=== PATIENT | female | born 1995 | race Caucasian/White ===

== ENCOUNTER 2018-05-13 15:21 | Emergency (ER) | payer MEDICAID ==
[~2018-05-13] VITALS: Ht 160 cm; Wt 57.2 kg
[2018-05-13 15:34] VITALS: BP 140/75; PULSE 97; RESP 17; Ht 160 cm; Wt 57.2 kg
[2018-05-13] MEDS ORDERED: KETOROLAC 60 MG INJ IM STA (17:40)
[2018-05-13] MEDS ORDERED: DIAZEPAM 5 MG TAB PO ONE (18:00)
[2018-05-13] MEDS ORDERED: IBUP800T48 PO (18:27)
[2018-05-13] MEDS ORDERED: DIAZ5TAB PO (18:27)
[2018-05-13] MEDS ORDERED: CETI10TA19 PO (18:32)
[2018-05-13] MEDS ORDERED: FLUT16SP17 NASAL (18:32)
--- NOTE | 2018-05-13 18:47 | ERD ---
ER Documentation Chief Complaint Chief Complaint chest wall pain x 3 days associated with difficulty taking deep breath HPI History of Present Illness: Patient coming in today with complaint of chest pain for approximately 3 days. Patient denies respiratory distress, dizziness, shortness of breath, weakness. Patient reports increased stress at work over the past week, and has noticed pain afterwards. Patient also with complaint of nasal congestion; denies cough, runny nose, fever, chills. At home pharmacological/nonpharmacological treatment for symptoms: DENIES Denies social concerns; Denies recent foreign travel ROS All systems reviewed and are negative except as per history of present illness. Medications Home Meds Active Scripts Cetirizine Hcl* (Cetirizine Hcl*) 10 Mg Tablet, 10 MG PO DAILY for NASALCONGESTION/COUGH/ALLERGIE, #30 TAB Prov:VIET HERNANDEZ NP 05/13/18 Fluticasone Propionate* (Fluticasone Propionate* Nasal) 50 Mcg/[place] - 16 Gm [place].susp, 1 SPRAY NASAL DAILY for NASAL CONGESTION, #1 BOTTLE TO EACH NOSTRIL Prov:VIET HERNANDEZ NP 05/13/18 Ibuprofen* (Motrin*) 800 Mg Tab, 800 MG PO Q6H PRN for PAIN AND/OR INFLAMMATION, #30 TAB Prov:VIET HERNANDEZ NP 05/13/18 Diazepam* (Valium*) 5 Mg Tablet, 5 MG PO Q12 PRN for ANXIETY/CHEST WALL PAIN, #15 TAB Prov:VIET HERNANDEZ NP 05/13/18 Allergies Allergies: Coded Allergies: No Known Allergy (Unverified , 08/05/12) PMhx/Soc Medical and Surgical Hx: pt denies Medical Hx, pt denies Surgical Hx Hx Alcohol Use: No Hx Substance Use: No Hx Tobacco Use: No Smoking Status: Never smoker FmHx Family History: coronary disease; No diabetes Physical Exam Vitals Vital Signs Date Temp Pulse Resp B/P (MAP) Pulse Ox O2 O2 Flow FiO2 Time Delivery Rate 05/13/18 98.1 97 17 140/75 100 15:34 (96) Physical Exam Const: No acute distress, afebrile Head: Atraumatic Eyes: Normal Conjunctiva ENT: Normal External Ears, Mouth. Nasal turbinates swollen, nasal mucosa with erythema. Neck: Full range of motion. No meningismus. Resp: Clear to auscultation bilaterally Cardio: Regular rate and rhythm, no murmurs. Heart rate 96. Chest wall tenderness to palpation. Abd: Soft, non tender, non distended. No guarding, no masses, no rigidity Skin: No petechiae or rashes Back: No midline or flank tenderness Ext: No cyanosis, or edema Neur: Awake and alert x3, speaking in clear sentences, no focal deficits or facial asymmetry Psych: Normal Mood and Affect Results 24 hrs Laboratory Tests Test 05/13/18 18:02 POC Beta HCG, Qualitative NEGATIVE Current Medications Medications Dose Sig/Justin Start Time Status Last (Trade) Ordered Route PRN Stop Time Admin Dose Reason Admin Ketorolac 60 mg ONCE STAT 05/13/18 DC 05/13/18 Tromethamine IM 17:40 18:08 (Toradol) 05/13/18 17:44 Diazepam 10 mg ONCE ONCE 05/13/18 DC 05/13/18 (Valium) PO 18:00 18:03 05/13/18 18:01 Procedures/MDM ED course includes a thorough examination and history. Medications: Valium for muscle relaxer/anxiety; ketorolac for pain/inflammation Imaging: ---- Labs: Urine Low suspicion for life-threatening medical emergency. Low suspicion for coronary pulmonary emergency that requires hospitalization/immediate intervention. Patient afebrile, hemodynamically stable. EKG @ 1549: Rate/Rhythm: Normal Tachy Rhythm, VR 112 QRS, ST, T-waves: No changes consistent w/ acute ischemia Impression: No evidence of ischemia or arrhythmia Otherwise healthy patient presenting with constellation of symptoms likely representing uncomplicated chest wall pain/costochondritis secondary to stress at work; allergic rhinitis as characterized by history, physical exam findings. Negative urine No respiratory distress, otherwise relatively well appearing and nontoxic. Patient educated on diagnoses, prescriptions, follow-up care, return precautions. Strict return precautions given for worsening condition; questions answered discharge. Educated on relaxation techniques and emotional support for providing reassurance on decreasing stress related to problems at work. Patient encouraged to take a mental health break; will take 1 day off from work. Disposition for discharge with followup in 2 days with PCP/clinic. Departure Diagnosis: Primary Impression: Anterior chest wall pain Additional Impressions: Stress at home Allergic rhinitis Allergic rhinitis trigger: unspecified Allergic rhinitis seasonality: unspecified Qualified Codes: J30.9 - Allergic rhinitis, unspecified Condition: Stable Patient Instructions: Stress: Causes and Effects, Chest Wall Pain, Costochondritis, Allergic Rhinitis Referrals: [facility] () Usted se guzman hecho un examen mdico de control que le indica que no est en ankur condicin que requiera tratamiento urgente en el Departamento de Emergencia. Un estudio ms profundo y el tratamiento de vences condicin pueden esperar sin ningn riesgo hasta que usted sea atendida/o en el consultorio de vences mdico o ankur clnica. Es responsabilidad suya arreglar ankur melissa para el seguimiento del daniel. MANEJO DE CONDICIONES NO URGENTES EN EL FUTURO 1) Si usted tiene un mdico de atencin primaria: Usted debera llamar a vences mdico de atencin primaria antes de venir al departamento de emergencia. Despus de las horas de consultorio, vences doctor o vences asociado/a est disponible por telfono. El mdico o enfermero de connie en el servicio telefnico puede asesorarle por rhea medio para atender el problema, o daniel contrario se puede programar ankur melissa. 2) Si usted no tiene un mdico de atencin primaria: Llame al mdico o clnica de referencia que aparece abajo brian las horas de consultorio para hacer ankur melissa para que le vean. CLINICAS: [facility] [phone] [facility] [phone] [facility] [phone] [address] [address]. [facility] [phone] [address] [facility] [phone] [address] [facility]. [phone] [address] [facility] [address] . [facility] () Usted se guzman hecho un examen mdico de control que le indica que no est en ankur condicin que requiera tratamiento urgente en el Departamento de Emergencia. Un estudio ms profundo y el tratamiento de vences condicin pueden esperar sin ningn riesgo hasta que usted sea atendida/o en el consultorio de vences mdico o ankur clnica. Es responsabilidad suya arreglar ankur melissa para el seguimiento del daniel. MANEJO DE CONDICIONES NO URGENTES EN EL FUTURO 1) Si usted tiene un mdico de atencin primaria: Usted debera llamar a vences mdico de atencin primaria antes de venir al departamento de emergencia. Despus de las horas de consultorio, vences doctor o vences asociado/a est disponible por telfono. El mdico o enfermero de connie en el servicio telefnico puede asesorarle por rhea medio para atender el problema, o daniel contrario se puede programar ankur melissa. 2) Si usted no tiene un mdico de atencin primaria: Llame al mdico o condado institucions de referencia que aparece abajo brian las horas de consultorio para hacer ankur melissa para que le vean. SI USTED NO PUEDE PAGAR PARA NASH UN MEDICO puede ir a: [facility] [address] [place] [address] [facility] [address] [place] [address] [facility] [address] [place] [address] [facility] [address] [place], [place] [id number] Additional Instructions: Muchas rinku por permitirnos participar en vences cuidado. Vences federico y seguridad es nuestra principal prioridad en [facility]. Llame a vences mdico de atencin primaria MAANA para ankur melissa brian los prximos 2 a 4 parham y traiga toda la informacin y los medicamentos recetados. Llene las recetas y siga exactamente las instrucciones de la etiqueta. Si los sntomas empeoran y vences proveedor no est disponible, regrese inmediatamente al Departamento de Emergencias. Es importante encontrar actividades para aliviar el estrs. Parece ser que actualmente tiene el dolor de la pared torcica debido a la tatianna tensin en el hogar. [place] Valium y contine teniendo dolor en la pared torcica y ansiedad debido al estrs. [place] el ibuprofeno para el dolor / inflamacin. Es seguro kiran ambos medicamentos juntos. Te estoy dando 2 medicamentos para la congestin nasal. La cetirizina es ankur pldora que debe kiran todos los parham para prevenir la congestin nasal por recurrencia. La fluticasona es un aerosol nasal que se puede usar todos los parham. ------ Thank you very much for allowing us to participate in your care. Your health and safety is our top priority at [facility]. Call your primary care doctor TOMORROW for an appointment during the next 2-4 days and bring all the information and medications prescribed. Have prescriptions filled and follow precisely the directions on the label. If the symptoms get worse and your provider is unavailable, return to the Emergency Department immediately. It is important to find stress relief activities. It appears to be that you are currently having the chest wall pain due to high stress at home. Take the Valium and continue to have the chest wall pain and anxiety due to stress. Take the ibuprofen for pain/inflammation. It is safe to take both medications together. I am giving you 2 medications for nasal congestion. Cetirizine is a pill that you should take every day to prevent nasal congestion for recurring. Fluticasone is a nasal spray that you can use every day. VIET HERNANDEZ NP May 13, 2018 18:46
== END 2018-05-13 18:45 | disposition home or self-care (01) ==
LOC: FTE 15:21
DX: R07.89 Other chest pain (principal); J30.9 Allergic rhinitis, unspecified; F43.0 Acute stress reaction
CPT/HCPCS: 81025; 93005; J1885; Z7610; 96372

== ENCOUNTER 2018-06-01 09:40 | Emergency (ER) | payer MEDICAID ==
[~2018-06-01] VITALS: Ht 160 cm; Wt 58.3 kg
[~2018-06-01 09:40] MED LIST: CETI10TA19 PO; DIAZ5TAB PO; FLUT16SP17 NASAL; IBUP800T48 PO
[2018-06-01 09:42] VITALS: Ht 160 cm; Wt 58.3 kg
--- NOTE | 2018-06-01 12:33 | ERD ---
ER Documentation Chief Complaint Chief Complaint vaginal bleeding - LMP 04/20/18 ; denies pain HPI 22-year-old female presents with approximately 6 weeks by dates. She has had vaginal bleeding since last night. She may have had small clots but no tissues. She has minimal pain. She has mild right-sided pelvic pain. She denies fevers, vomiting, urinary complaints. She did see an OB yesterday but bleeding did not start the last night. She is a G2 para 1. ROS All systems reviewed and are negative except as per history of present illness. Medications Home Meds Active Scripts Cetirizine Hcl* (Cetirizine Hcl*) 10 Mg Tablet, 10 MG PO DAILY for NASALCON GESTION/COUGH/ALLERGIE, #30 TAB Prov:VIET HERNANDEZ V CUSTOMER CONTACT REPRESENTATIVE 05/13/18 Fluticasone Propionate* (Fluticasone Propionate* Nasal) 50 Mcg/[place] - 16 Gm [place].susp, 1 SPRAY NASAL DAILY for NASAL CONGESTION, #1 BOTTLE TO EACH NOSTRIL Prov:VIET HERNANDEZ NP 05/13/18 Ibuprofen* (Motrin*) 800 Mg Tab, 800 MG PO Q6H PRN for PAIN AND/OR INFLAMMATION, #30 TAB Prov:VIET HERNANDEZ V CUSTOMER CONTACT REPRESENTATIVE 05/13/18 Diazepam* (Valium*) 5 Mg Tablet, 5 MG PO Q12 PRN for ANXIETY/CHEST WALL PAIN, #15 TAB Prov:VIET HERNANDEZ V CUSTOMER CONTACT REPRESENTATIVE 05/13/18 Allergies Allergies: Coded Allergies: No Known Allergy (Unverified , 08/05/12) PMhx/Soc Medical and Surgical Hx: pt denies Medical Hx, pt denies Surgical Hx Hx Alcohol Use: No Hx Substance Use: No Hx Tobacco Use: No Smoking Status: Never smoker Physical Exam Vitals Vital Signs Date Temp Pulse Resp B/P (MAP) Pulse Ox O2 O2 Flow FiO2 Time Delivery Rate 06/01/18 97.0 116 24 145/65 100 09:42 (91) Physical Exam Const: No acute distress Head: Atraumatic Eyes: Normal Conjunctiva ENT: Normal External Ears, Nose and Mouth. Neck: Full range of motion. No meningismus. Resp: Clear to auscultation bilaterally Cardio: Regular rate and rhythm, no murmurs Abd: Soft, minimal tenderness in right pelvic area without rebound. No masses. Non distended. Normal bowel sounds Skin: No petechiae or rashes Back: No midline or flank tenderness Ext: No cyanosis, or edema Neur: Awake and alert Psych: Normal Mood and Affect Result Diagram: 06/01/18 1020 Results 24 hrs Laboratory Tests Test 06/01/18 10:20 White Blood Count 8.0 10^3/ul Red Blood Count 4.69 10^6/ul Hemoglobin 13.5 g/dl Hematocrit 41.1 % Mean Corpuscular Volume 87.6 fl Mean Corpuscular Hemoglobin 28.8 pg Mean Corpuscular Hemoglobin Concent 32.8 g/dl Red Cell Distribution Width 13.0 % Platelet Count 299 10^3/UL Mean Platelet Volume 9.7 fl Immature Granulocytes % 0.500 % Neutrophils % 66.4 % Lymphocytes % 21.6 % Monocytes % 7.4 % Eosinophils % 3.3 % Basophils % 0.8 % Nucleated Red Blood Cells % 0.0 /100WBC Immature Granulocytes # 0.040 10^3/ul Neutrophils # 5.3 10^3/ul Lymphocytes # 1.7 10^3/ul Monocytes # 0.6 10^3/ul Eosinophils # 0.3 10^3/ul Basophils # 0.1 10^3/ul Nucleated Red Blood Cells # 0.0 10^3/ul Urine Color STRAW Urine Clarity CLEAR Urine pH 7.0 Urine Specific [place] 1.004 Urine Ketones NEGATIVE mg/dL Urine Nitrite NEGATIVE mg/dL Urine Bilirubin NEGATIVE mg/dL Urine Urobilinogen NEGATIVE mg/dL Urine Leukocyte Esterase NEGATIVE Nir/ul Urine Hemoglobin NEGATIVE mg/dL Urine Glucose NEGATIVE mg/dL Urine Total Protein NEGATIVE mg/dl POC Beta HCG, Qualitative POSITIVE Beta HCG, Quantitative 670.8 mIU/ml Procedures/MDM Pelvic ultrasound shows no appreciable intrauterine or extrauterine . There is a 1.4 cm right paraovarian cyst. There is bilateral Doppler flow. Quantitative hCG is 670. Patient is Rh+. Stable amatory throughout the ER course. Patient presents with vaginal bleeding for the last day. Differential includes early normal , ectopic , failed . She will discharged home with recommendations for 2-day recheck of hormones to further evaluate condition. She is to return sooner for fevers, hemorrhaging, new worsening symptoms. Current signs or symptoms do not suggest appendicitis, acute surgical abdomen, additional concerning signs or symptoms or conditions. The patient was stable with no new complaints during the ER course. Clinically, there is no current evidence to suggest meningitis, sepsis, acute abdomen, pneumonia, stroke, acute coronary syndrome, pulmonary embolism, aortic dissection or any other emergent condition appearing to require further evaluation or hospitalization. Patient counseled regarding my diagnostic impression and care plan. Prior to discharge all questions answered. Pt agrees with treatment plan and understands strict return precautions. Pt is instructed to follow up with primary care provider within 24- 48 hours. Precautionary instructions provided including instructions to return to the ER if not improving or for any worsening or changing symptoms or concerns. Departure Diagnosis: Primary Impression: Vaginal bleeding in patient at less than 20 weeks ges... Condition: Stable Patient Instructions: Bleeding During Early Referrals: NO PRIMARY,CARE PHYSICIAN (PCP) Additional Instructions: no uede maria teresa un emabarazo horita. posiblemente emabarazo temprano, ectopico o aborto. cheque hormaones otor vez en 2 michelle para cheque otor vez, mas temprano para fiebre , nueva simptomas. ROSALIO POWELL MD Jun 01, 2018 12:33
[2018-06-01 12:45] VITALS: BP 135/70; PULSE 89; RESP 18
== END 2018-06-01 12:47 | disposition home or self-care (01) ==
LOC: FTE 09:40
DX: O20.9 Hemorrhage in early pregnancy, unspecified (principal); R10.2 Pelvic and perineal pain; Z3A.01 Less than 8 weeks gestation of pregnancy
CPT/HCPCS: 36415; 76801; 76817; 81003; 81025; 84702; 85025; 86900; 86901; Z7502

== ENCOUNTER 2018-06-03 11:42 | Inpatient (IN) | payer MEDICAID ==
[~2018-06-03] VITALS: Ht 160 cm; Wt 60.3 kg
--- NOTE | 2018-06-03 12:37 | ERD ---
ER Documentation Chief Complaint Chief Complaint VAG BLEED 6 WEEKS PREG HPI This is a 22-year-old female who presents to the emergency room for recheck of vaginal bleeding. Patient was here 2 days ago and beta hCG was 670 with no IUP visualized on ultrasound. Patient states in the last 2 days she continues to have dark brown spotting blood with urination, no active bleeding, patient's not wearing a pad. No fevers, no dysuria, mild cramping pain. LMP: 04/20/18 PETRONA: 01/25/19 OB: [facility], Julius Valium and ibuprofen on patient's med list. Patient states she is not taking them and knows that this is contraindicated in . ROS All systems reviewed and are negative except as per history of present illness. Medications Home Meds Active Scripts Cetirizine Hcl* (Cetirizine Hcl*) 10 Mg Tablet, 10 MG PO DAILY for NASALCONGESTION/COUGH/ALLERGIE, #30 TAB Prov:VIET HERNANDEZ NP 05/13/18 Fluticasone Propionate* (Fluticasone Propionate* Nasal) 50 Mcg/[place] - 16 Gm [place].susp, 1 SPRAY NASAL DAILY for NASAL CONGESTION, #1 BOTTLE TO EACH NOSTRIL Prov:VIET HERNANDEZ NP 05/13/18 Ibuprofen* (Motrin*) 800 Mg Tab, 800 MG PO Q6H PRN for PAIN AND/OR INFLAMMATION, #30 TAB Prov:VIET HERNANDEZ NP 05/13/18 Diazepam* (Valium*) 5 Mg Tablet, 5 MG PO Q12 PRN for ANXIETY/CHEST WALL PAIN, #15 TAB Prov:VIET HERNANDEZ NP 05/13/18 Allergies Allergies: Coded Allergies: No Known Allergy (Unverified , 08/05/12) PMhx/Soc Medical and Surgical Hx: pt denies Medical Hx, pt denies Surgical Hx Hx Alcohol Use: No Hx Substance Use: No Hx Tobacco Use: No FmHx Family History: No diabetes, No coronary disease, No other Physical Exam Vitals Vital Signs Date Temp Pulse Resp B/P (MAP) Pulse Ox O2 O2 Flow FiO2 Time Delivery Rate 06/03/18 99.6 122 16 139/86 98 Room Air 15:31 (103) 06/03/18 99.9 136 18 149/87 99 11:45 (107) Physical Exam Const: No acute distress Head: Atraumatic Eyes: Normal Conjunctiva, PERRL ENT: Normal External Ears, Nose and Mouth. Neck: Full range of motion. No meningismus. Resp: Clear to auscultation bilaterally Cardio: Regular rate and rhythm, no murmurs Abd: Soft, +tender, LLQ, non distended. Normal bowel sounds Skin: No petechiae or rashes Ext: No cyanosis, or edema Neur: Awake and alert Psych: Normal Mood and Affect Result Diagram: 06/03/18 1249 Results 24 hrs Laboratory Tests Test 06/03/18 12:35 06/03/18 12:49 Urine Color YELLOW Urine Clarity SLIGHTLY CLOUDY Urine pH 7.0 Urine Specific [place] 1.006 Urine Ketones NEGATIVE mg/dL Urine Nitrite NEGATIVE mg/dL Urine Bilirubin NEGATIVE mg/dL Urine Urobilinogen NEGATIVE mg/dL Urine Leukocyte Esterase NEGATIVE Nir/ul Urine Microscopic RBC 2 /HPF Urine Microscopic WBC 1 /HPF Urine Squamous Epithelial Cells FEW /HPF Urine Hemoglobin 1+ mg/dL Urine Glucose NEGATIVE mg/dL Urine Total Protein NEGATIVE mg/dl White Blood Count 10.9 10^3/ul Red Blood Count 4.42 10^6/ul Hemoglobin 12.8 g/dl Hematocrit 38.5 % Mean Corpuscular Volume 87.1 fl Mean Corpuscular Hemoglobin 29.0 pg Mean Corpuscular Hemoglobin Concent 33.2 g/dl Red Cell Distribution Width 12.9 % Platelet Count 288 10^3/UL Mean Platelet Volume 9.9 fl Immature Granulocytes % 0.500 % Neutrophils % 71.7 % Lymphocytes % 17.4 % Monocytes % 7.9 % Eosinophils % 1.8 % Basophils % 0.7 % Nucleated Red Blood Cells % 0.0 /100WBC Immature Granulocytes # 0.050 10^3/ul Neutrophils # 7.8 10^3/ul Lymphocytes # 1.9 10^3/ul Monocytes # 0.9 10^3/ul Eosinophils # 0.2 10^3/ul Basophils # 0.1 10^3/ul Nucleated Red Blood Cells # 0.0 10^3/ul Beta HCG, Quantitative 1580.2 mIU/ml Current Medications Medications Dose Sig/Justin Start Time Status Last (Trade) Ordered Route PRN Stop Time Admin Dose Reason Admin Ondansetron 4 mg BRIDGE ORDER 4/19/19 HCl (Zofran PRN IV 15:00 Inj) NAUSEA/VOMITI 06/04/18 14:59 NG 650 mg ER BRIDGE 06/03/18 Acetaminophen PRN PO 15:00 (Tylenol .MILD PAIN 06/04/18 14:59 Tab) 1-3 OR TEMP Sodium 1,000 ml @ Q1H STAT 06/03/18 06/03/18 Chloride 1,000 mls/hr IV 15:34 15:40 06/03/18 16:33 Procedures/MDM This is a 22-year-old female who presents to the emergency room with follow-up to vaginal bleeding during . ED COURSE: The patient was stable throughout ED course. I kept the patient and/or family informed of laboratory and diagnostic imaging results throughout the ED course. DIAGNOSTIC IMAGING: US: No intrauterine gestation visualized. Read by radiologist. MEDICATIONS GIVEN: None. MDM: 06/01/18: Rh+; H/H-13.5/41.1; BHCG- 670.8; US- of unknown location. Negative for evidence of an intrauterine and negative for evidence of an adnexal mass. 06/03/18: H/H-12.8/38.5 ;BHCG- 1580; US- No intrauterine gestation visualized 13:56-been ultrasound exam assessed with concern for ectopic . Dr. Rubalcava consulted. Dr. Maldonado senior qa automation engineer to come see patient. Patient informed of results and plan, patient remained stable, no active bleeding, no pain, NAD. Patient moved to private exam room for preparation of pelvic exam. 15:09: She remained stable during ED course. Patient is being admitted to hospitalist OB Dr. Maldonado who is assuming care of patient. 15:38: IV and NS initiated due to pt HR. Patient is tearful. No active bleeding. Awaiting transfer to inpatient room. Departure Patient Instructions: Miscarriage Referrals: [facility], JAMIE Garcia NP Jun 03, 2018 12:37
[2018-06-03] MEDS ORDERED: ONDANSETRON 4 MG INJ IV PRN (15:00)
[2018-06-03] MEDS ORDERED: ACETAMINOPHEN 325 MG TAB PO PRN (15:00)
--- NOTE | 2018-06-03 15:33 | QN ---
Documentation Comment Medical decision making: Patient has a likely ectopic with increasing quantitative hCG but no IUP seen on ultrasound. I spoke with Dr. Maldonado for admission to her service to a medical surgical bed. KATHY WEST MD Jun 03, 2018 15:33
[2018-06-03] MEDS ORDERED: SOD CHLORIDE 0.9% 1,000 ML IV STA (15:34)
--- NOTE | 2018-06-03 18:30 | CONS ---
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 U/s today no GS or adnesal mass noted compare to 06/01/18when us showed no intrauterine sac nor adnexal mass with 1.4cm paraovarian cyst noted endometrial thickness is increased today u/s compare to 06/01/18, but no paratubal cyst since HCG doubled up in 2days and patient desire to keep the if its normal,will repeat HCG in am with hospital observation closely since patient is tarchycardic, which was also on 06/01/18 ( HR 117) admit to med surg repeat HCG and U/s LLQ pain mild browinsh spotting 2days ago Constitutional: no complaints, improved Past Medical History Medical History: no pertinent history Home Meds Active Scripts Cetirizine Hcl* (Cetirizine Hcl*) 10 Mg Tablet, 10 MG PO DAILY for NASALCONGESTION/COUGH/[place], #30 TAB Prov:VIET HERNANDEZ NP 05/13/18 Fluticasone Propionate* (Fluticasone Propionate* Nasal) 50 Mcg/[place] - 16 Gm [place].susp, 1 SPRAY NASAL DAILY for NASAL CONGESTION, #1 BOTTLE TO EACH NOSTRIL Prov:VIET HERNANDEZ NP 05/13/18 Ibuprofen* (Motrin*) 800 Mg Tab, 800 MG PO Q6H PRN for PAIN AND/OR INFLAMMATION, #30 TAB Prov:VIET HERNANDEZ NP 05/13/18 Diazepam* (Valium*) 5 Mg Tablet, 5 MG PO Q12 PRN for ANXIETY/CHEST WALL PAIN, #15 TAB Prov:VIET HERNANDEZ NP 05/13/18 Medications Current Medications Ondansetron HCl (Zofran Inj) 4 mg BRIDGE ORDER PRN IV NAUSEA/VOMITING; Start 06/03/18 at 15:00; Stop 06/04/18 at 14:59 Acetaminophen (Tylenol Tab) 650 mg ER BRIDGE PRN PO .MILD PAIN 1-3 OR TEMP; Start 06/03/18 at 15:00; Stop 06/04/18 at 14:59 Allergies: Coded Allergies: No Known Allergy (Unverified , 08/05/12) Past Surgical History section for distress Past Surgical Hx: no surgical history Family History Significant Family History: no pertinent family hx Social History Alcohol Use: none Smoking Status: Current every day smoker Drug Use: none Exam/Review of Systems Exam Vitals Vital Signs Date Temp Pulse Resp B/P (MAP) Pulse Ox O2 O2 Flow FiO2 Time Delivery Rate 06/03/18 117 20 133/76 100 Room Air 16:36 (95) 06/03/18 99.6 15:31 Constitutional: alert, oriented, well developed Psych: no complaints, nl mood/affect Head: No normocephalic, No atraumatic, No lacerations, No hematomas, No other Eyes: nl conjunctiva, EOMI, nl lids, nl sclera, PERRL Genitourinary - Female: nl adnexae, nl external genitalia, CMT, CVA tenderness, uterus, other (mild tenderness) Results Result Diagram: 06/03/18 1249 Results 24hrs Laboratory Tests Test 06/03/18 12:35 06/03/18 12:49 Urine Color YELLOW Urine Clarity SLIGHTLY CLOUDY A Urine pH 7.0 Urine Specific [place] 1.006 Urine Ketones NEGATIVE Urine Nitrite NEGATIVE Urine Bilirubin NEGATIVE Urine Urobilinogen NEGATIVE Urine Leukocyte Esterase NEGATIVE Urine Microscopic RBC 2 Urine Microscopic WBC 1 Urine Squamous Epithelial Cells FEW Urine Hemoglobin 1+ H Urine Glucose NEGATIVE Urine Total Protein NEGATIVE White Blood Count 10.9 #H Red Blood Count 4.42 Hemoglobin 12.8 Hematocrit 38.5 Mean Corpuscular Volume 87.1 Mean Corpuscular Hemoglobin 29.0 Mean Corpuscular Hemoglobin Concent 33.2 Red Cell Distribution Width 12.9 Platelet Count 288 Mean Platelet Volume 9.9 Immature Granulocytes % 0.500 H Neutrophils % 71.7 Lymphocytes % 17.4 Monocytes % 7.9 Eosinophils % 1.8 Basophils % 0.7 Nucleated Red Blood Cells % 0.0 Immature Granulocytes # 0.050 H Neutrophils # 7.8 H Lymphocytes # 1.9 Monocytes # 0.9 Eosinophils # 0.2 Basophils # 0.1 Nucleated Red Blood Cells # 0.0 Beta HCG, Quantitative 1580.2 Medications Medication Current Medications Ondansetron HCl (Zofran Inj) 4 mg BRIDGE ORDER PRN IV NAUSEA/VOMITING; Start 06/03/18 at 15:00; Stop 06/04/18 at 14:59 Acetaminophen (Tylenol Tab) 650 mg ER BRIDGE PRN PO .MILD PAIN 1-3 OR TEMP; Start 06/03/18 at 15:00; Stop 06/04/18 at 14:59 HUGH BALTAZAR MD Jun 03, 2018 18:25
[2018-06-03 19:43] VITALS: BP 120/71; PULSE 120; RESP 17
[2018-06-03 19:51] VITALS: Ht 160 cm; Wt 60.3 kg
[2018-06-03 20:18] VITALS: PULSE 118
[2018-06-03 23:45] VITALS: BP 123/66; PULSE 107; RESP 18
[2018-06-04] VITALS (12 sets, daily range): BP systolic 106–121; BP diastolic 58–69; PULSE 86–109; RESP 17–18
--- NOTE | 2018-06-04 17:01 | QN ---
Documentation Comment Patient denies any abdominal pain. Reports had some scant amount of bleeding when she urinated this morning.Denies any N/V. Denies any dizziness, lightheadedness, shortness of breath or chest pain Examination: General appearance: Alert and oriented x4 comfortable in the bed, does not appear to be in any acute distress Abdomen: Soft, no tenderness, no rebound tenderness, no guarding, no rigidity, no evidence of acute abdomen Pelvic exam deferred Laboratory Tests Test 06/03/18 12:35 06/03/18 12:49 06/04/18 05:40 Urine Color YELLOW Urine Clarity SLIGHTLY CLOUDY Urine pH 7.0 Urine Specific [place] 1.006 Urine Ketones NEGATIVE mg/dL Urine Nitrite NEGATIVE mg/dL Urine Bilirubin NEGATIVE mg/dL Urine Urobilinogen NEGATIVE mg/dL Urine Leukocyte Esterase NEGATIVE Nir/ul Urine Microscopic RBC 2 /HPF Urine Microscopic WBC 1 /HPF Urine Squamous Epithelial Cells FEW /HPF Urine Hemoglobin 1+ mg/dL Urine Glucose NEGATIVE mg/dL Urine Total Protein NEGATIVE mg/dl White Blood Count 10.9 10^3/ul 9.7 10^3/ul Red Blood Count 4.42 10^6/ul 4.21 10^6/ul Hemoglobin 12.8 g/dl 12.2 g/dl Hematocrit 38.5 % 37.0 % Mean Corpuscular Volume 87.1 fl 87.9 fl Mean Corpuscular Hemoglobin 29.0 pg 29.0 pg Mean Corpuscular 33.2 g/dl 33.0 g/dl Hemoglobin Concent Red Cell Distribution Width 12.9 % 13.0 % Platelet Count 288 10^3/UL 284 10^3/UL Mean Platelet Volume 9.9 fl 10.1 fl Immature Granulocytes % 0.500 % 0.400 % Neutrophils % 71.7 % 56.8 % Lymphocytes % 17.4 % 30.4 % Monocytes % 7.9 % 8.4 % Eosinophils % 1.8 % 3.2 % Basophils % 0.7 % 0.8 % Nucleated Red Blood Cells % 0.0 /100WBC 0.0 /100WBC Immature Granulocytes # 0.050 10^3/ul 0.040 10^3/ul Neutrophils # 7.8 10^3/ul 5.5 10^3/ul Lymphocytes # 1.9 10^3/ul 3.0 10^3/ul Monocytes # 0.9 10^3/ul 0.8 10^3/ul Eosinophils # 0.2 10^3/ul 0.3 10^3/ul Basophils # 0.1 10^3/ul 0.1 10^3/ul Nucleated Red Blood Cells # 0.0 10^3/ul 0.0 10^3/ul Beta HCG, Quantitative 1580.2 mIU/ml 1990.6 mIU/ml PROCEDURE: US OB. CLINICAL INDICATION: Vaginal bleeding in . TECHNIQUE: Transabdominal and endovaginal imaging of the uterus is available for review COMPARISON: US PELVIS 06/03/2018 FINDINGS: There is a single intrauterine with a mean sac diameter of 0.6 cm, giving an estimated gestational age of 5 weeks 1 day by ultrasound criteria. No pole or yolk sac is detected. No subchorionic hemorrhage is identified. The ovaries demonstrate a 2.1 cm right ovarian corpus luteum cyst. There is a 1.5 cm right paraovarian cyst with 3 mm echogenicity along the wall. IMPRESSION: 1. Single intrauterine with an estimated gestational age of 5 weeks 1 day by ultrasound criteria. No pole or yolk sac is identified. This may be secondary to early dates. Repeat pelvic ultrasound is recommended in 1 week. 2. 1.5 cm right paraovarian cyst with 3 mm echogenic focus along the wall. Assessment: Amenorrhea test positive, admitted for rule out ectopic Hemodynamically stable. Asymptomatic HCG rising, however ultrasound showed gestational sac without yolk sac or pole Recommended the patient have a repeat hCG in 48 hours after initial hCG lab to see the trend, still cannot rule out ectopic since yolk sac was not seen Discussed with the patient plan of care Order for hCG tomorrow at noon at the same time of initial draw was placed Desired Scant spotting, threatened miscarriage Type and screen requested If serum hCG shows adequate increase in 48 hours, 50% or more from the original lab in the hospital and in the same lab, may consider discharge home with a strict precaution and follow-up within 2-3 days after discharge from 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 Patient verbalized understanding. ASHELY BOBO MD Jun 04, 2018 17:01
[2018-06-05] VITALS (12 sets, daily range): BP systolic 101–121; BP diastolic 56–99; PULSE 75–129; RESP 17–20
--- NOTE | 2018-06-05 16:47 | QN ---
Documentation Comment Early patient is comfortable No Vb No abd pain VS stable Gen AND Abd soft ND NT Genitalia No blood at perineum --->Discharge plan if ultraound doesn't show any clear Ectopic precautions discussed [facility] answered Follow up as outpatient LANDON MURCIA M.D. Jun 05, 2018 16:47
--- NOTE | 2018-06-05 16:47 | DS ---
Date/Time of Note Date/Time of Note DATE: 06/05/18 TIME: 16:47 Discharge Summary Admission/Discharge Info Admit Date/Time Jun 03, 2018 at 14:41 Discharge Date/Time 06/05/18 Discharge Diagnosis early Patient Condition: Good Hospital Course uneventful Home Meds Active Scripts Cetirizine Hcl* (Cetirizine Hcl*) 10 Mg Tablet, 10 MG PO DAILY for NASALCONGESTION/COUGH/[place], #30 TAB Prov:VIET HERNANDEZ NP 05/13/18 Fluticasone Propionate* (Fluticasone Propionate* Nasal) 50 Mcg/[place] - 16 Gm [place].susp, 1 SPRAY NASAL DAILY for NASAL CONGESTION, #1 BOTTLE TO EACH NOSTRIL Prov:VIET HERNANDZE NP 05/13/18 Ibuprofen* (Motrin*) 800 Mg Tab, 800 MG PO Q6H PRN for PAIN AND/OR INFLAMMATION, #30 TAB Prov:VIET HERNANDEZ NP 05/13/18 Diazepam* (Valium*) 5 Mg Tablet, 5 MG PO Q12 PRN for ANXIETY/CHEST WALL PAIN, #15 TAB Prov:VIET HERNANDEZ NP 05/13/18 Primary Care Provider Not On Staff Doctor Pending Labs Laboratory Tests Test 06/05/18 14:42 Beta HCG, Quantitative 4107.9 mIU/ml LANDON MURCIA M.D. Jun 05, 2018 16:47
--- NOTE | 2018-06-05 20:39 | QN ---
Documentation Comment still tachycardic pelvic pain is not significant u/s definitely sac is visible but paraovarian cyst ? /ectopic A early IUP P repeat B HCG TSH for tacycardia one more U/S in am HUGH BALTAZAR MD Jun 05, 2018 20:39
[2018-06-06] VITALS (11 sets, daily range): BP systolic 101–114; BP diastolic 52–61; PULSE 62–118; RESP 18–20
[2018-06-06] MEDS: SOD CHLORIDE 0.9% 1,000 ML IV SCH (14:46)
--- NOTE | 2018-06-06 17:58 | QN ---
Documentation Comment Early patient is comfortable No Vb No abd pain VS stable Mildly tachycardic Gen AND Abd soft ND NT Genitalia No blood at perineum --->Discharge plan if ultraound doesn't show any clear Ectopic tomorrow precautions discussed Questions answered Follow up as outpatient LANDON MURCIA M.D. Jun 06, 2018 17:58
[2018-06-07] VITALS (10 sets, daily range): BP systolic 100–115; BP diastolic 53–59; PULSE 73–119; RESP 16–18
[2018-06-07] MEDS: SOD CHLORIDE 0.9% 1,000 ML IV SCH ×2 (00:30→09:51)
--- NOTE | 2018-06-07 17:11 | QN ---
Documentation Comment Early vs Missed Patient is comfortable No Vb No abd pain VS stable Gen AND Abd soft ND NT Genitalia No blood at perineum --->discharged with precautions and will follow up as outpatient. --->questions answered --->follow up with provider LANDON MURCIA M.D. Jun 07, 2018 17:11
--- NOTE | 2018-06-07 17:12 | DS ---
Date/Time of Note Date/Time of Note DATE: 06/07/18 TIME: 17:11 Discharge Summary Admission/Discharge Info Admit Date/Time Jun 03, 2018 at 14:41 Discharge Date/Time 06/07/2018 Discharge Diagnosis early vs Missed Patient Condition: Good Hospital Course uneventful Home Meds Active Scripts Cetirizine Hcl* (Cetirizine Hcl*) 10 Mg Tablet, 10 MG PO DAILY for NASALCONGESTION/COUGH/[place], #30 TAB Prov:VIET HERNANDEZ NP 05/13/18 Fluticasone Propionate* (Fluticasone Propionate* Nasal) 50 Mcg/[place] - 16 Gm [place].susp, 1 SPRAY NASAL DAILY for NASAL CONGESTION, #1 BOTTLE TO EACH NOSTRIL Prov:VIET HERNANDEZ NP 05/13/18 Ibuprofen* (Motrin*) 800 Mg Tab, 800 MG PO Q6H PRN for PAIN AND/OR INFLAMMATION, #30 TAB Prov:VIET HERNANDEZ V DOUGHNUT MAKER 05/13/18 Diazepam* (Valium*) 5 Mg Tablet, 5 MG PO Q12 PRN for ANXIETY/CHEST WALL PAIN, #15 TAB Prov:VIET HERNANDEZ V DOUGHNUT MAKER 05/13/18 Primary Care Provider Not On Staff Doctor Pending Labs Laboratory Tests Test 06/07/18 10:28 06/07/18 10:38 Beta HCG, Quantitative 8555.4 mIU/ml Serum HCG, Qualitative POSITIVE (NEGATIVE) LANDON MURCIA M.D. Jun 07, 2018 17:12
== END 2018-06-07 18:12 | disposition home or self-care (01) | DRG 833 ==
LOC: FTE 11:42 → 6WM 14:41 → CANRESERV 15:18 → EDBEDREQSVC 16:04
PROVIDERS: ADMIT Obstetrics & Gynecology; ATTEND Obstetrics & Gynecology
DX: O20.9 Hemorrhage in early pregnancy, unspecified (principal); Z3A.01 Less than 8 weeks gestation of pregnancy
CPT/HCPCS: 36415; 76801; 76817; 81001; 84443; 84702; 84703; 85025; 86850; 86900; 86901; J7030

== ENCOUNTER 2018-08-20 08:12 | Emergency (ER) | payer MEDICAID ==
[~2018-08-20] VITALS: Ht 160 cm; Wt 60.5 kg
[2018-08-20 08:22] VITALS: BP 123/65; PULSE 109; RESP 18; Ht 160 cm; Wt 60.5 kg
--- NOTE | 2018-08-20 09:17 | ERD ---
ER Documentation Chief Complaint Chief Complaint VAG. SPOTTING SINCE THIS MORNING. 17 WKS . HPI 23-year-old female presents the emergency department complaining of vaginal bleeding. Patient states that she has a normal intrauterine with no complications related to this . She states that this morning she noted 3 small drops of blood either in her urine or vagina. She reported no other hemorrhage. She reported no pelvic cramping or loss of fluid. ROS All systems reviewed and are negative except as per history of present illness. Medications Home Meds No Active Prescriptions or Reported Meds Allergies Allergies: Coded Allergies: No Known Allergy (Unverified , 08/05/12) PMhx/Soc Medical and Surgical Hx: pt denies Medical Hx History of Surgery: Yes (cs) Anesthesia Reaction: No Hx Neurological Disorder: No Hx Respiratory Disorders: No Hx Cardiac Disorders: No Hx Psychiatric Problems: No Hx Miscellaneous Medical Probl: No Hx Alcohol Use: No Hx Substance Use: No Hx Tobacco Use: No Smoking Status: Never smoker Physical Exam Vitals Vital Signs Date Temp Pulse Resp B/P (MAP) Pulse Ox O2 O2 Flow FiO2 Time Delivery Rate 08/20/18 98.3 109 18 123/65 100 08:22 (84) Physical Exam GENERAL: The patient is well developed and appropriate for usual state of health in no apparent distress HEENT: Pupils equal, round, and reactive to light. EOMI. There is no scleral icterus. NECK: C-spine is soft and supple, there is no meningismus. There is no cervical lymphadenopathy. LUNGS: Clear to auscultation bilaterally. There are no rales, wheezes or rhonchi. HEART: Regular rate and rhythm, no murmurs, clicks, rubs or gallops. ABDOMEN: Gravid, soft, non-tender, non-distended. There are bowel sounds in all four quadrants. No rebound or guarding. EXTREMITIES: There is no peripheral cyanosis or edema. No focal swelling or erythema. NEURO: The patient moves all four extremities with 5/5 strength. Cranial nerves II - XII are intact. Normal gait. Alert and oriented SKIN: There is no apparent rash or petechiae. HEME/LYMPHATIC: There is no evidence of excessive bruising or lymphedema. PSYCHIATRIC: The patient does not appear anxious or depressed. Results 24 hrs Laboratory Tests Test 08/20/18 08:36 Urine Color STRAW Urine Clarity CLEAR Urine pH 7.0 Urine Specific [place] 1.005 Urine Ketones NEGATIVE mg/dL Urine Nitrite NEGATIVE mg/dL Urine Bilirubin NEGATIVE mg/dL Urine Urobilinogen NEGATIVE mg/dL Urine Leukocyte Esterase 1+ Nir/ul Urine Microscopic RBC 1 /HPF Urine Microscopic WBC 2 /HPF Urine Squamous Epithelial Cells FEW /HPF Urine Bacteria FEW /HPF Urine Hemoglobin 1+ mg/dL Urine Glucose NEGATIVE mg/dL Urine Total Protein NEGATIVE mg/dl Procedures/MDM Patient was taken to a room, seen and evaluated. Comfort measures were initiated. Diagnostic tests were ordered and reviewed. RADIOLOGY: Reviewed with the radiologist REEVALUATION: 0915: Diagnostic tests were appreciated. Patient remained he medically stable. Patient remained comfortable with no further bleeding. MEDICAL DECISION MAKIN-year-old female presents the emergency department with a small amount of bleeding by history with no evidence of ongoing hemorrhage in the setting of a normal second trimester . Patient appears to be clinically nontoxic with no further evidence of urinary tract infection. Patient's been reassured with her ultrasound results and seems appropriate for discharge. Departure Diagnosis: Primary Impression: Condition: Stable Patient Instructions: Vaginal Bleed in AGUSTIN KNOWLES Aug 20, 2018 09:16
== END 2018-08-20 09:19 | disposition home or self-care (01) ==
LOC: FTE 08:12
DX: O26.852 Spotting complicating pregnancy, second trimester (principal); Z3A.17 17 weeks gestation of pregnancy
CPT/HCPCS: 76805; 81001; Z7502

== ENCOUNTER 2018-09-08 11:17 | Outpatient (CLI) | payer MEDICAID ==
[~2018-09-08] VITALS: Ht 160 cm; Wt 62.4 kg
[2018-09-08 11:50] VITALS: Ht 160 cm; Wt 62.4 kg
[2018-09-08 11:51] VITALS: BP 114/65; PULSE 100; RESP 18
--- NOTE | 2018-09-08 14:31 | TRIAGE ---
OB Triage Datetime Report Generated by CPN: 09/08/2018 14:30 Datetime: 09/08/2018 14:00 Labor Evaluation Frequency: none Monitor Mode: External Resting Tone [place]: Relaxed Heart Rate FHR Baseline Rate: 150 Monitor Mode: External US FHR Baseline Changes: No Baseline Change Variability: Moderate 6-25 bpm Accelerations: 10X10 Decelerations: Variable Comments: appropriate for GA Datetime: 09/08/2018 12:59 Labor Evaluation Frequency: none Monitor Mode: External Resting Tone [place]: Relaxed Comments: FHTs at 152 Datetime: 09/08/2018 11:56 Stage of : OB Triage Assessment Type: Triage Maternal Assessment Level of Consciousness: Keenly Alert, Responsive DTR's/Clonus: DTRs 2+; No Clonus Headache: Denies Blurred Vision: No Respiratory Effort: Unlabored; Regular Rhythm; Equal Expansion Breath Sounds, Left: Clear and Equal Breath Sounds, Right: Clear and Equal Nausea/Vomiting: Denies RUQ Epigastric Pain: Denies Lower Extremities Edema: None Degree: None Upper Extremities Edema: None Degree: None Facial Edema: None Temperature Route: Oral Fall Risk Assessment History of Falling: (0) No Secondary Diagnosis: (0) No Ambulatory Aid: (0) Bedrest/Nurse Assist IV Therapy: (0) No Gait: (0) Normal/Bedrest/Immobile Mental Status: (0) Oriented to Own Ability Fall Score: 0 Fall Risk Score Definition: No Risk: No action required Labor Evaluation Frequency: none Monitor Mode: External Resting Tone [place]: Relaxed Heart Rate FHR Baseline Rate: FHTs 153 Monitor Mode: External US Pain Assessment Pain Scale: 0 Pain Presence: None/Denies Pain Type: N/A Datetime: 09/08/2018 11:54 Time of Arrival: 09/08/2018 11:15 EGA: 18.2 Arrived By: Ambulatory Arrived From: Home Chief Complaint: vaginal bleeding Contractions: Denies/Absent Rupture of Membranes: Denies Vaginal Bleeding: Bright Red Vaginal Discharge: Denies Recent Sexual Intercouse: Denies Abdominal Trauma: Not Applicable Patient Complaints: Other Time Provider Notified: 09/08/2018 12:10 Provider Notified: Dr Cordova Initial Plan: NST
--- NOTE | 2018-09-09 02:36 | PN ---
Triage Information Date/Time September 08, 2018 Reason for visit: Vag spotting / bleeding Weeks of Gestation 18+ weeks /Para 2 para 1 Diabetes: none Hypertention: none Additional information 23-year-old G2, P1 with IUP at 18+ weeks presented with complaint of vaginal bleeding. She denies any leaking of fluid, contractions. She denies any urinary symptoms. Objective Vital Signs Date Temp Pulse Resp B/P (MAP) Pulse Ox O2 O2 Flow FiO2 Time Delivery Rate 09/08/18 98.9 100 18 114/65 11:51 (81) Heart Rate: 130's Heart Rate Comments Appropriate for gestational age Contractions: None Exam General appearance: Alert and oriented x4 does not appear to be in any acute distress Abdomen: Soft, gravid, fundal height consider gestational age No bleeding noted during observation in triage Cervical length 3.7 cm UA negative Results/Medications Result Diagram: 09/08/18 1229 Results 24 hrs Laboratory Tests Test 09/08/18 12:20 09/08/18 12:29 Urine Color YELLOW Urine Clarity SLIGHTLY CLOUDY A Urine pH 6.0 Urine Specific [place] 1.015 Urine Ketones NEGATIVE Urine Nitrite NEGATIVE Urine Bilirubin NEGATIVE Urine Urobilinogen NEGATIVE Urine Leukocyte Esterase NEGATIVE Urine Microscopic RBC 2 Urine Microscopic WBC 1 Urine Hemoglobin 1+ H Urine Glucose NEGATIVE Urine Total Protein NEGATIVE White Blood Count 11.5 H Red Blood Count 3.91 L Hemoglobin 11.5 L Hematocrit 35.3 L Mean Corpuscular Volume 90.3 Mean Corpuscular Hemoglobin 29.4 Mean Corpuscular Hemoglobin Concent 32.6 Red Cell Distribution Width 13.2 Platelet Count 300 Mean Platelet Volume 9.6 Immature Granulocytes % 0.400 Neutrophils % 75.3 Lymphocytes % 14.1 L Monocytes % 6.8 Eosinophils % 2.8 Basophils % 0.6 Nucleated Red Blood Cells % 0.0 Immature Granulocytes # 0.050 H Neutrophils # 8.7 H Lymphocytes # 1.6 Monocytes # 0.8 Eosinophils # 0.3 Basophils # 0.1 Nucleated Red Blood Cells # 0.0 Imaging Results MENDMENT: 09/08/2018 1:49:39 PM Daniele Reyna Md Addendum: The estimated weight should read 264.87 g not 29 64.87 g PROCEDURE: US OB. CLINICAL INDICATION: Vaginal bleeding TECHNIQUE: Multiple sonographic images of the pelvis were obtained. The images were reviewed on a PACS workstation. COMPARISON: 08/20/2018 FINDINGS: The cervix is closed with a length 3.7 cm There is a single viable intrauterine gestation. Cardiac activity is present with 154 beats per minute. There is a transverse head to the maternal right presentation. Measurements were made in order to determine age. The results are as follows: BPD = 4.26 cm 18 weeks 6 days HC = 16.01 cm 18 weeks 6 days AC = 14.38 cm 19 weeks 5 days FL = 2.65 cm 18 weeks 0 days. Estimated gestational age of approximately 18 weeks 6 days. The estimated date of delivery is 02/03/2019. The EFW = 29 64.87 g 82.9% . The placenta is posterior grade 1. There is no evidence for an abruption or placenta previa There is a normal amount of amniotic fluid IMPRESSION: Single viable intrauterine gestation of approximately 18 weeks 6 days. The estimated date of delivery is 02/03/2019 . No evidence of placental abruption or placenta previa Disposition: Discharge Assessment/Plan IUP at 18+ weeks by 6 weeks ultrasound not consistent with LMP, records reviewed. Vaginal bleeding spotting, Rh+. No Evidence of placental abruption or previa No evidence of labor No evidence of bleeding noted during monitoring and observation in triage. Patient was comfortable. Denies any abdominal pain. Patient discharged home in stable condition. Pelvic rest and rest at home with a follow-up within 48 hours after discharge from the hospital discussed with patient. Patient verbalized understanding. All questions answered to patient's best satisfaction. ASHELY BOBO MD Sep 09, 2018 02:36
== END 2018-09-08 14:27 | disposition home or self-care (01) ==
LOC: OBT 11:17 → L-D 11:19 → OBT 14:27
PROVIDERS: ATTEND Obstetrics & Gynecology
DX: O20.8 Other hemorrhage in early pregnancy (principal); Z3A.18 18 weeks gestation of pregnancy
CPT/HCPCS: 76816; 76817; 81001; 85025; 86850; 86900; 86901; Z7500; G0463

== ENCOUNTER 2018-10-13 14:36 | Outpatient (CLI) | payer MEDICAID ==
[~2018-10-13] VITALS: Ht 160 cm; Wt 66.6 kg
[~2018-10-13 14:36] MED LIST changes: +CALC600T24 PO; -CETI10TA19 PO; -DIAZ5TAB PO; -FLUT16SP17 NASAL; -IBUP800T48 PO; +PNV11TAB PO
[2018-10-13 16:34] VITALS: BP 119/73; PULSE 99; RESP 18
== END 2018-10-13 21:01 | disposition home or self-care (01) ==
LOC: L-D 14:36 → OBT 14:36 → L-D 15:55 → OBT 21:01
PROVIDERS: ATTEND Obstetrics & Gynecology
DX: O26.852 Spotting complicating pregnancy, second trimester (principal); Z3A.25 25 weeks gestation of pregnancy
CPT/HCPCS: 76815; 76817; 81001; 85025; 86850; 86900; 86901; G0463

== ENCOUNTER 2018-12-09 00:10 | Outpatient (CLI) | payer MEDICAID ==
[~2018-12-09] VITALS: Ht 163.8 cm; Wt 72.1 kg
[~2018-12-09 00:10] MED LIST changes: +FERR134T PO
[2018-12-09 00:48] VITALS: BP 129/66; PULSE 102; RESP 16
== END 2018-12-09 03:01 | disposition home or self-care (01) ==
LOC: L-D 00:10 → OBT 00:10
PROVIDERS: ATTEND Obstetrics & Gynecology
DX: O46.8X3 Other antepartum hemorrhage, third trimester (principal); Z3A.33 33 weeks gestation of pregnancy
CPT/HCPCS: 76815; 76817; 76818; 81001; 87086; Z7500; G0463